=== PATIENT | male | born 1970 | race Caucasian/White ===

== ENCOUNTER 2017-10-06 09:26 | Emergency (ER) | payer OTHER ==
[~2017-10-06] VITALS: Ht 175.3 cm; Wt 93.4 kg
[~2017-10-06 09:26] MED LIST: ASPIRIN EC81 MG PO; FISH OIL500 M1 PO; VITAMIN D5000 UNIT PO
[2017-10-06] MEDS ORDERED: LIPITOR40 MG PO (09:40)
--- NOTE | 2017-10-06 18:37 | EKG ---
[facility] [address] [facility] [place] [address] Signed Normal sinus rhythm RSR' or QR pattern in V1 suggests right ventricular conduction delay Borderline ECG No previous ECGs available Confirmed by JAMSEON COE MD ([id number]) on 10/06/2017 6:37:24 PM Electronically Signed By: JAMESON COE MD 10/06/17 1837 PATIENT NAME: JAMILA COBURN JANAY Electrocardiogram DATE OF : 72 PHYSICIAN: JAMESON COE MD REPORT #: [id number] REPORT IS CONFIDENTIAL AND NOT TO BE RELEASED WITHOUT AUTHORIZATION
== END 2017-10-06 10:58 | disposition home or self-care (01) ==
LOC: ED 09:26
DX: F41.9 Anxiety disorder, unspecified (principal); M54.2 Cervicalgia; E78.00 Pure hypercholesterolemia, unspecified; F17.200 Nicotine dependence, unspecified, uncomplicated; Z79.899 Other long term (current) drug therapy; Z79.82 Long term (current) use of aspirin
CPT/HCPCS: 71046; 80053; 84484; 85025; 93005; 93010; 99284

== ENCOUNTER 2019-08-10 14:42 | Emergency (ER) | payer OTHER ==
[~2019-08-10] VITALS: Ht 175.3 cm; Wt 93.4 kg
[~2019-08-10 14:42] MED LIST changes: +LIPITOR40 MG PO
[2019-08-10] MEDS ORDERED: ATORVASTATIN CA80 MG PO (14:59)
[2019-08-10] MEDS ORDERED: VITAMIN C1000 MG PO (15:01)
== END 2019-08-10 16:45 | disposition home or self-care (01) ==
LOC: ED 14:42
DX: R10.31 Right lower quadrant pain (principal); E78.00 Pure hypercholesterolemia, unspecified; F17.200 Nicotine dependence, unspecified, uncomplicated; Z79.899 Other long term (current) drug therapy
CPT/HCPCS: 80053; 81001; 83690; 85025; 99284; 99406

== ENCOUNTER 2021-11-06 02:25 | Emergency (ER) | payer OTHER ==
[~2021-11-06] VITALS: Ht 175.3 cm; Wt 100.0 kg
[~2021-11-06 02:25] MED LIST changes: +ATORVASTATIN CA80 MG PO; +VITAMIN C1000 MG PO
--- NOTE | 2021-11-06 11:13 | EKG ---
[facility] [address] [facility] [place], [place] [address] Signed Normal sinus rhythm Incomplete right bundle branch block Borderline ECG When compared with ECG of 06-OCT-2017 09:32, No significant change was found Confirmed by NEO BENNETT MD ([id number]) on 11/06/2021 11:13:38 AM Electronically Signed By: NEO BENNETT MD 11/06/21 1113 PATIENT NAME: MARIA DEL ROSARIOROBINAJAMILA Electrocardiogram DATE OF : 72 PHYSICIAN: NEO BENNETT MD REPORT #: [id number] REPORT IS CONFIDENTIAL AND NOT TO BE RELEASED WITHOUT AUTHORIZATION
== END 2021-11-06 03:45 | disposition home or self-care (01) ==
LOC: ED 02:25
DX: R00.2 Palpitations (principal); E78.00 Pure hypercholesterolemia, unspecified; F17.200 Nicotine dependence, unspecified, uncomplicated; Z79.899 Other long term (current) drug therapy
CPT/HCPCS: 36415; 71045; 80053; 83735; 84484; 85025; 93005; 93010; 99285-25

== ENCOUNTER 2021-11-13 02:41 | Emergency (ER) | payer OTHER ==
[~2021-11-13] VITALS: Ht 175.3 cm; Wt 101.0 kg
--- NOTE | ~2021-11-13 | EKG ---
[facility] [address] [facility] [place], [place] [address] Draft EK completed, results pending confirmation PATIENT NAME: IRISHJAMILA Electrocardiogram DATE OF : 72 PHYSICIAN: PRELIMINARY REPORT #: [id number] REPORT IS CONFIDENTIAL AND NOT TO BE RELEASED WITHOUT AUTHORIZATION
--- OUTSIDE RECORDS SUMMARY | 2021-11-13 02:48 | XMS ---
PreManage Notification: JAMILA COBURN Security Probation Agent Events No recent Security Events currently on file CRITERIA MET - [facility] - 2 Visits in 30 Days CARE PROVIDERS There are no care providers on record at this time. Kimmie has no Care Guidelines for this patient. [facility] NOTE: Visits indicate total known visits. ED/C VISIT TRACKING (12 MO.) 11/13/2021 02:41 [facility] [place] TYPE: Emergency COMPLAINT: - CHEST PAIN 11/06/2021 02:26 [facility] [place] TYPE: Emergency COMPLAINT: - HEART PALPITATIONS DIAGNOSES: - Palpitations - Nicotine dependence, unspecified, uncomplicated - Pure hypercholesterolemia, unspecified - Other long-term (current) drug therapy INPATIENT VISIT TRACKING (12 MO.) No inpatient visits to display in this time frame [email or web address]
[2021-11-13] MEDS ORDERED: MAGNESIUM250 MG PO (02:56)
[2021-11-13] MEDS ORDERED: GLYCOTROL CAPS1 EACH PO (02:56)
[2021-11-13] MEDS ORDERED: NUFOLA CAPSULE1 EAC1 PO (02:56)
[2021-11-13] MEDS ORDERED: CO Q-10300 MG PO (02:57)
== END 2021-11-13 04:10 | disposition home or self-care (01) ==
LOC: ED 02:41
DX: R00.2 Palpitations (principal); E78.00 Pure hypercholesterolemia, unspecified; F17.200 Nicotine dependence, unspecified, uncomplicated; Z79.899 Other long term (current) drug therapy
CPT/HCPCS: 36415; 71045; 80053; 83735; 84484; 85025; 85379; 93005; 93010; 99285-25

== ENCOUNTER 2023-07-16 05:55 | Day surgery (SDC) | payer OTHER ==
[2023-07-12 16:23] VITALS: BP 124/79
[~2023-07-16] VITALS: Ht 175.3 cm; Wt 111.0 kg
[~2023-07-16 05:55] MED LIST changes: +BUPROPION HCL100 MG PO; +CO Q-10300 MG PO; +FLECAINIDE ACE150 MG PO; +GLYCOTROL CAPS1 EACH PO; +MAGNESIUM250 MG PO; +MIDAZOLAM HCL 5 MG/5 ML VIAL IV PRN; +NUFOLA CAPSULE1 EAC1 PO; +VITAMIN C 500500 M1 PO; +fentaNYL citrate 100 MCG/2 ML VIAL IV PRN
[2023-07-16 06:07] VITALS: BP 120/73
[2023-07-16] MEDS ORDERED: METOPROLOL SUC100 MG PO (06:12)
[2023-07-16] MEDS ORDERED: LIDOCAINE HCL 1% 5 ML SDV INJ ONE (07:00)
[2023-07-16] MEDS ORDERED: IBLOOD GLUCOSE TEST STRIP 1 EA TEST VI PRN ×2 (07:00→08:00)
[2023-07-16] MEDS ORDERED: LACTATED RINGER'S 1,000 ML IV SCH (07:00)
[2023-07-16] MEDS ORDERED: propofoL 200 MG/20 ML VIAL ONE ×2 (07:23→07:36)
[2023-07-16] MEDS ORDERED: LIDOCAINE HCL 2% 5 ML SDV ONE (07:23)
[2023-07-16] MEDS ORDERED: ondansetron HCL 4 MG/2 ML VIAL IV PRN (08:00)
[2023-07-16] MEDS ORDERED: fentaNYL citrate 100 MCG/2 ML VIAL IV PRN (08:00)
[2023-07-16] MEDS ORDERED: NALOXONE HCL 0.4 MG SYR IV PRN (08:00)
--- NOTE | 2023-07-16 08:23 | NUR ---
07/16/23 0823 Win,Esperanza 0756 PT ARRIVED TO ON 6L VIA MASK AND LARGE AMOUNT OF SNORING NOTED. CHIN LIFT USED. VSS.
[2023-07-16 08:34] VITALS: BP 117/89
--- NOTE | 2023-07-16 08:52 | OR ---
[facility] [address] [place], [place] [address] Signed DATE OF OPERATION: 07/16/2023 SURGEON: Venus Mayfield MD PREOPERATIVE DIAGNOSIS: Sister with colonic polyps in her late 30s or early 40s. POSTOPERATIVE DIAGNOSES: 1. Minimal to moderate left-sided diverticulosis. 2. 4 mm polyp at 30 cm. 3. 4 mm polyp/lymphoid aggregate at 70 cm in the left colon. 4. 4 mm polyp/lymphoid aggregate at 7 cm in the rectum. 5. Tiny internal hemorrhoid columns. PROCEDURE: Colonoscopy with hot biopsy. ESTIMATED BLOOD LOSS: None. INDICATIONS: Isidro is a 53-year-old gentleman, asked to see me for his initial colonoscopy. He has a sister back in [place] who had colonic polyps removed in her very late 30s or early 40s. The doctors in [place] recommended all the siblings undergo early screening colonoscopies. His sister goes every five years for her colonoscopies. Isidro has no lower GI complaints. He came back in 2021 hoping to schedule his colonoscopy. He did not want to be tested for COVID at that time. So, he is coming now to reschedule the colonoscopy. Isidro has no lower GI complaints. In the office I had given him a pamphlet on colonoscopy. We had reviewed the nature of the test. There is risk including, but not limited to gas bloating, crampy abdominal pain, bleeding, perforation requiring surgery, and missed diagnosis. We also had reviewed the written instructions for bowel prep line by line. In particular, we had gone over the details of his heart history. He is welcome to continue those medications. He also has a full round face and a large abdomen. Based on these two things, we asked for monitored anesthesia care with propofol infusion. He also told us that he wakes up violent from anesthesia. He had expressed understanding and wished to proceed. PROCEDURE IN DETAIL: Isidro was taken into our endoscopy suite and placed in the left lateral decubitus position. He was given monitored anesthesia care with propofol infusion per our nurse Electronically Signed By: VENUS MAYFIELD MD 07/16/23 0852 PATIENT NAME: ISIDRO COBURN OPERATIVE REPORT DATE OF : 72 REPORT #: [id number] PHYSICIAN: VENUS MAYFIELD MD PCP: MARINA MAY PAC REPORT IS CONFIDENTIAL AND NOT TO BE RELEASED WITHOUT AUTHORIZATION [facility] [address] [place], [place] [address] Signed program manager. A digital rectal exam was performed. He has good sphincter tone. No external hemorrhoids. No masses. His prostate right is a little high, but what I could feel of it was a little indurated, but not overly enlarged. No dominant nodules. After this, the adult colonoscope was introduced and advanced under direct visualization of camera up into the cecum itself. It took just a little extra propofol and some abdominal compression in order to get the scope directly into the cecum. His prep was good. We could easily see his appendiceal orifice and ileocecal valve. The scope was then slowly withdrawn. We took pictures throughout for photodocumentation. He had one polypoid lesion at 30 cm removed with a hot biopsy forceps. The other two were probably lymphoid aggregates, but we went ahead, removed those as well with the hot biopsy forceps. He does have diverticula. There were small to moderate in size, few in number and scattered throughout the left and sigmoid colon. Upon retroflexion of scope he has very minimal tiny internal hemorrhoid columns. After this, the gas was suctioned out, colonoscope removed. Isidro tolerated the procedure quite well. RECOMMENDATIONS: I will see Isidro back in my office in 7 to 14 days to review his results. It appears he will always need monitored anesthesia care. He will probably stay on the five year plan due to his sister's history. Venus Mayfield MD ALB/MODL /[id number] cc: GUERDA Mena MD Dr. Steven Maxood Copies: ALBERT DOYLE Electronically Signed By: VENUS MAYFIELD MD 07/16/23 0852 PATIENT NAME: ISIDRO COBURN OPERATIVE REPORT DATE OF : 72 REPORT #: [id number] PHYSICIAN: VENUS MAYFIELD MD PCP: MARINA MAY PAC REPORT IS CONFIDENTIAL AND NOT TO BE RELEASED WITHOUT AUTHORIZATION [facility] [address] [place] [address] Signed VENUS MAYFIELD MD ~ Electronically Signed By: VENUS MAYFIELD MD 07/16/23 0852 PATIENT NAME: ISIDRO COBURN OPERATIVE REPORT DATE OF : 72 REPORT #: [id number] PHYSICIAN: VENUS MAYFIELD MD PCP: MARINA MAY PAC REPORT IS CONFIDENTIAL AND NOT TO BE RELEASED WITHOUT AUTHORIZATION
--- NOTE | 2023-07-20 09:58 | PATH ---
[facility] [address] [place], [place] [address] Signed SPECIMEN(S): A SIGMOID POLYP AT 30 CM SPECIMEN(S): B DESCENDING/LEFT COLON POLYP AT 70 CM SPECIMEN(S): C RECTAL POLYP AT 7 CM SPECIMEN SOURCE: A. SIGMOID POLYP AT 30 CM B. DESCENDING/LEFT COLON POLYP AT 70 CM C. RECTAL POLYP AT 7 CM CLINICAL HISTORY: Postop polyps, diverticulosis. FINAL PATHOLOGIC DIAGNOSIS: A. Sigmoid polyp at 30 cm, biopsy: - Hyperplastic polyp. B. Descending/left colon polyp at 70 cm, biopsy: - Tubular adenoma. C. Rectal polyp at 7 cm, biopsy: - Hyperplastic polyp. AMB MICROSCOPIC EXAMINATION: Histologic sections of all submitted blocks are examined by light microscopy. These findings, together with the gross examination, support the pathologic diagnosis. GROSS DESCRIPTION: A. The specimen is labeled, and designated "Katlyn Holm, #1." and designated on the requisition "sigmoid polypectomy, 30 cm," is received in formalin and consists of one hernandez soft tissue fragment that is 0.3 cm in greatest dimension. The specimen is entirely submitted in (A1) B. The specimen, labeled and designated "Bitmaria rf, M, 2." and designated on the requisition "descending/left polypectomy, 70 cm," is received in formalin and consists of one hernandez soft tissue fragment that is 0.3 cm in greatest dimension. The specimen is entirely submitted in (B1). C. The specimen, labeled and designated "Bitmaria rf, M, 3." and designated on the requisition "rectum polypectomy, 7 cm," is received in formalin and consists of one hernandez soft tissue fragment that is 0.3 cm in greatest dimension. The specimen is entirely submitted in (C1). FB (under the direct supervision of a pathologist) PATIENT NAME: JAMILA HOLM PATHOLOGY DATE OF : 72 REPORT #: [id number] PHYSICIAN: GABINO GARRIDO PCP: MARINA MAY PAC REPORT IS CONFIDENTIAL AND NOT TO BE RELEASED WITHOUT AUTHORIZATION [facility] [address] [place], [place] [address] Signed The Gross Description was prepared using a voice recognition system. The report was reviewed for accuracy; however, sound-alike word errors, addition and/or deletions may occur. If there is any question about this report, please contact Client Services. ADDITIONAL NOTES: Immunohistochemical and/or in situ hybridization studies if performed in this case included appropriate positive controls that reacted as expected. This test was developed and its performance characteristics determined by [facility]. It has not been cleared or approved by the U.S. Food and Drug Administration. The FDA has determined that such clearance or approval is not necessary. This test is used for clinical purposes. It should not be regarded as investigational or for research. [facility] is certified under the Clinical Laboratory Improvement Amendments of 1988 (CLIA) as qualified to perform high complexity clinical laboratory testing. PERFORMING LABORATORY: Technical component was performed by [facility], [address] [place] [id number] (CLIA# [id number]). Professional interpretation was performed by [facility] [address] [place] [id number] Diagnostician: Laura Snider MD Pathologist Electronically Signed 07/20/2023 Copies: ~ PATIENT NAME: IRISHJAMILA JANAY PATHOLOGY DATE OF : 72 REPORT #: [id number] PHYSICIAN: GABINO GARRIDO PCP: MARINA MAY PAC REPORT IS CONFIDENTIAL AND NOT TO BE RELEASED WITHOUT AUTHORIZATION
== END 2023-07-16 08:45 | disposition home or self-care (01) ==
LOC: DS 05:55
PROVIDERS: ATTEND Colon & Rectal Surgery
PROC: 0DBN8ZX Excision of Sigmoid Colon, Via Natural or Artificial Opening Endoscopic, Diagnostic (ICD-10-PCS; 2023-07-16)
PROC: 0DBP8ZX Excision of Rectum, Via Natural or Artificial Opening Endoscopic, Diagnostic (ICD-10-PCS; 2023-07-16)
PROC: 0DBG8ZX Excision of Left Large Intestine, Via Natural or Artificial Opening Endoscopic, Diagnostic (ICD-10-PCS; principal; 2023-07-16 07:30)
DX: Z12.11 Encounter for screening for malignant neoplasm of colon (principal); D12.4 Benign neoplasm of descending colon; K63.5 Polyp of colon; K62.1 Rectal polyp; K57.30 Diverticulosis of large intestine without perforation or abscess without bleeding; K64.8 Other hemorrhoids; I48.0 Paroxysmal atrial fibrillation; I25.10 Atherosclerotic heart disease of native coronary artery without angina pectoris; I10 Essential (primary) hypertension; F41.9 Anxiety disorder, unspecified; E78.00 Pure hypercholesterolemia, unspecified; E66.9 Obesity, unspecified; Z79.899 Other long term (current) drug therapy; Z83.719 Family history of colon polyps, unspecified
CPT/HCPCS: 00811; J2001; J2704; J7121